=== PATIENT | male | born 1985 | race Caucasian/White ===

== ENCOUNTER 2023-01-04 10:08 | Emergency (ER) | payer OTHER ==
[~2023-01-04] VITALS: Ht 175.3 cm; Wt 84.1 kg
[2023-01-04 10:23] VITALS: BP 125/76
== END 2023-01-04 11:45 | disposition home or self-care (01) ==
LOC: ER 10:09
DX: U09.9 Post COVID-19 condition, unspecified (principal)
CPT/HCPCS: 99281